=== PATIENT | female | born 1970 | race Caucasian/White ===

== ENCOUNTER 2024-05-12 12:30 | Emergency (ER) | payer OTHER | END 2024-05-12 16:18 | disposition home or self-care (01) | LOC: JP.ED 12:30 | DX: S92.354A Nondisplaced fracture of fifth metatarsal bone, right foot, initial encounter for closed fracture (principal); Z86.16 Personal history of COVID-19; Z79.899 Other long term (current) drug therapy; Z88.5 Allergy status to narcotic agent; W10.9XXA Fall (on) (from) unspecified stairs and steps, initial encounter | CPT/HCPCS: 73630-26-RT; 73630-RT; 99283 ==